=== PATIENT | female | born 1950 | race American Indian/Alaskan Native ===

== ENCOUNTER 2019-02-24 18:04 | Emergency (ER) | payer MEDICARE ==
--- NOTE | 2019-02-24 18:19 | Emergency Department Report ---
Chief Complaint: Syncope Stated Complaint: PASSED OUT/HIT HEAD Time Seen by Provider: 02/24/19 18:15 - HPI History of Present Illness: pt presents with syncope that occurred 30 min [employer] pt states she was feeling dizziness/lightheaded prior to syncope pt hit her head in the gravel driveway pt states she feels nauseous and dizziness now denies any SOLIMAN no numbness, weakness no vision changes PMHx DM, HTN MSE screening note: Focused history performed. Due to findings the following was ordered: CT head and c-spine, labs, EKG ED Disposition for MSE Condition: Stable
[2019-02-24 18:51] LABS: Basophils # (Auto) 0.1 K/mm3 (0.0-0.1); Basophils % (Auto) 0.7 % (0.0-1.8); Eosinophils # (Auto) 0.1 K/mm3 (0.0-0.4); Eosinophils % (Auto) 0.7 % (0.0-4.3); Hematocrit 37.5 % (30.3-42.9); Hemoglobin 12.6 gm/dl (10.1-14.3); Lymphocytes # (Auto) 3.1 K/mm3 (1.2-5.4); Mean Corpuscular HGB Conc 34 % (30-34); Mean Corpuscular Volume 93 fl (79-97); Monocytes # (Auto) 0.4 K/mm3 (0.0-0.8); Monocytes % (Auto) 4.6 % (0.0-7.3); Platelet Count 337 K/mm3 (140-440); Red Blood Count 4.03 M/mm3 (3.65-5.03); Red Cell Distribution Width 14.8 % (13.2-15.2)
[2019-02-24 19:20] LABS: Alanine Aminotransferase 16 units/L (7-56); BUN/Creatinine Ratio 18; Blood Urea Nitrogen 14 mg/dL (7-17); Calcium 9.7 mg/dL (8.4-10.2); Hemolysis Index 19
--- NOTE | 2019-02-24 20:04 | Cat Scan Report ---
PROCEDURE: CT HEAD/BRAIN WO CON HISTORY: syncope, hit head FINDINGS: Unenhanced CT of the brain was performed and demonstrates no acute intracranial hemorrhage, extra-axial fluid collection, midline shift or mass effect. The ventricles and basal cisterns are no t effaced. The mastoid air cells and middle ears appear clear. There is no evidence of acute sinusitis. The bony calvarium appears intact. IMPRESSION: No acute intracranial hemorrhage This document is electronically signed by Donn Richards MD., February 24 2019 08:02:08 PM ET
--- NOTE | 2019-02-24 20:06 | Cat Scan Report ---
PROCEDURE: CT CERVICAL SPINE WO CON HISTORY: syncope, hit head FINDINGS: Unenhanced CT of the cervical spine was performed and data was reformatted in the sagittal and coronal planes. There is a vacuum disc at C2-C3. There is loss of intervertebral disc space height and endplate remod eling at C3 C4, C4 C5, C5 C6 and C6-C7. At C5-C6 there is a partially calcified posterior disc bulge which does not result in canal stenosis or nerve root impingement. The prevertebral soft tissues are within normal limits. The pulmonary apices appear clear. IMPRESSION: No fracture is seen in the cervical spine This document is electronically signed by Donn Richards MD., February 24 2019 08:04:36 PM ET
[2019-02-24] MEDS ORDERED: ZOFRAN ODT PO ONE (21:19)
[2019-02-24] MEDS ORDERED: ANTIVERT PO ONE (21:19)
--- NOTE | 2019-02-24 21:23 | Emergency Department Report ---
ED Syncope HPI - General Chief Complaint: Syncope Stated Complaint: PASSED OUT/HIT HEAD Time Seen by Provider: 02/24/19 18:15 - History of Present Illness Initial Comments: Patient is 69 years old female with history of hypertension. Patient presented to the ER complaining of an episode of syncope that started just prior to coming to the ER. Patient stated that she was helping her niece moving when all of a sudden she felt faint and fell on the ground hit her head. Patient stated that this is happened for a few seconds and she was back to normal except for an nausea. Patient denied any chest pain or shortness of breath due to this episode. She denied any headache, fever, abdominal pain or other symptoms. Timing/Prior Episodes: no prior history, single episode today Precipitating Factors: Positive: blurred vision, lightheadedness Context: standing Loss of Consciousness: brief (seconds) Current Symptoms: nausea - Related Data Allergies/Adverse Reactions: Allergies avocado Allergy (Verified 02/24/19 21:24) Unknown Home Medications: Ambulatory Orders Aspirin 81 mg PO DAILY 02/24/19 AtorvaSTATin 1 tab PO HS 02/24/19 Gabapentin [Neurontin] 300 mg PO DAILY 02/24/19 Insulin NPH Human Isophane [HumuLIN N] 18 unit SQ DAILY 02/24/19 glipiZIDE 20 mg PO BID 02/24/19 metFORMIN 10 mg PO BID 02/24/19 ED Review of Systems ROS: Stated complaint: PASSED OUT/HIT HEAD Other details as noted in HPI Comment: All other systems reviewed and negative ENT: denies: throat pain, dental pain Cardiovascular: denies: chest pain, palpitations, dyspnea on exertion Gastrointestinal: nausea. denies: abdominal pain, vomiting, diarrhea, constipation, hematemesis, melena, hematochezia Musculoskeletal: denies: back pain Neurological: vertigo. denies: headache, weakness, numbness, paresthesias, confusion, abnormal gait ED Past Medical Hx - Past Medical History Hx Hypertension: Yes Hx Diabetes: Yes Hx Arthritis: (RA) - Surgical History Additional Surgical History: right rotator cuff repair - Social History Smoking Status: Never Smoker Substance Use Type: None - Medications Home Medications: Home Medications Medication Instructions Recorded Confirmed Last Taken Type Aspirin 81 mg PO DAILY 02/24/19 02/24/19 Unknown History AtorvaSTATin 1 tab PO HS 02/24/19 02/24/19 Unknown History Gabapentin [Neurontin] 300 mg PO DAILY 02/24/19 02/24/19 Unknown History Insulin NPH Human Isophane 18 unit SQ DAILY 02/24/19 02/24/19 Unknown History [HumuLIN N] glipiZIDE 20 mg PO BID 02/24/19 02/24/19 Unknown History metFORMIN 10 mg PO BID 02/24/19 02/24/19 Unknown History ED Physical Exam - General Limitations: No Limitations General appearance: alert, in no apparent distress - Head Head exam: Present: atraumatic, normocephalic, normal inspection - Eye Eye exam: Present: normal appearance, PERRL - ENT ENT exam: Present: normal exam, normal orophraynx, mucous membranes moist - Neck Neck exam: Present: normal inspection, full ROM. Absent: tenderness, meningismus, lymphadenopathy, thyromegaly - Respiratory Respiratory exam: Present: normal lung sounds bilaterally - Cardiovascular Cardiovascular Exam: Present: regular rate, normal rhythm, normal heart sounds - GI/Abdominal GI/Abdominal exam: Present: soft, normal bowel sounds. Absent: distended, tenderness, guarding, rebound, rigid, organomegaly, mass, bruit, pulsatile mass, hernia - Extremities Exam Extremities exam: Present: normal inspection, full ROM, normal capillary refill - Back Exam Back exam: Present: normal inspection, full ROM. Absent: tenderness, CVA tenderness (R), CVA tenderness (L), muscle spasm, paraspinal tenderness, vertebral tenderness, rash noted - Neurological Exam Neurological exam: Present: alert, oriented X3, CN II-XII intact, normal gait, reflexes normal - Skin Skin exam: Present: warm, intact, normal color ED Course Vital Signs 02/24/19 02/24/19 02/24/19 18:18 20:55 21:00 Temperature 97.9 F 98.2 F Pulse Rate 89 85 80 Respiratory 18 14 18 Rate Blood Pressure 141/70 137/62 Blood Pressure 138/70 [Left] O2 Sat by Pulse 98 97 97 Oximetry 02/24/19 02/24/19 02/25/19 22:00 23:01 00:01 Temperature Pulse Rate 77 71 76 Respiratory 14 13 18 Rate Blood Pressure 128/68 106/59 120/57 Blood Pressure [Left] O2 Sat by Pulse 98 99 98 Oximetry ED Medical Decision Making - Lab Data Result diagrams: 02/24/19 18:29 02/24/19 18:29 - EKG Data -: EKG Interpreted by Me EKG shows normal: sinus rhythm Rate: normal - EKG Data Interpretation: no acute changes - Radiology Data Radiology results: report reviewed CT brain and CT cervical spine is negative for acute finding. - Medical Decision Making Patient is 69 years old female with history of hypertension. Patient presented to the ER complaining of an episode of syncope that started just prior to coming to the ER. Patient stated that she was helping her niece moving when all of a sudden she felt faint and fell on the ground hit her head. Patient stated that this is happened for a few seconds and she was back to normal except for an nausea. Patient denied any chest pain or shortness of breath due to this e pisode. She denied any headache, fever, abdominal pain or other symptoms. Patient remained asymptomatic in the ER. CT brain is negative. Labs reviewed and is negative. CT cervical spine is negative. Patient had an elevated d- dimer and had a CTA chest which is negative for PE. Patient will be discharged home to follow up with her primary care physician. Patient advised to return to the ER if symptoms are not improved. Critical care attestation.: If time is entered above; I have spent that time in minutes in the direct care of this critically ill patient, excluding procedure time. ED Disposition Clinical Impression: Dizziness Disposition: DC-01 TO HOME OR SELFCARE Is pt being admited?: No Condition: Stable Instructions: Dizziness (ED) Referrals: PRIMARY CARE, [Primary Care Provider] - 3-5 Days
[2019-02-24 21:34] LABS: Bilirubin,Urine NEG (Negative); Blood,Urine NEG (Negative); Color,Urine Yellow (Yellow); Hyaline Casts,Urine 3 /LPF; Mucus,Urine FEW /HPF; Protein,Urine <15 mg/dL mg/dL (Negative); Urobilinogen,Urine < 2.0 mg/dL (<2.0)
[2019-02-25 00:39] VITALS: BP 120/57
--- NOTE | 2019-02-25 01:14 | Cat Scan Report ---
PROCEDURE: CT ANGIO CHEST HISTORY: syncope and elevated d-dimer FINDINGS: Contrast-enhanced CT angiography of the chest was performed following the intravenous admin istration of iodinated contrast. Sagittal and coronal MIP three-dimensional reformatted images were g enerated. These images demonstrate no CT evidence of pulmonary thromboembolic disease. There is no aortic disse ction. There is no consolidative pulmonary infiltrate. There is no pleural or pericardial effusion. There is a hiatal hernia. In the upper abdomen, the gallbladder is unremarkable. The adrenal glands are within normal limits. IMPRESSION: No CT evidence of pulmonary thromboembolic disease Hiatal hernia This document is electronically signed by Donn Richards MD., February 25 2019 01:12:26 AM ET
== END 2019-02-25 01:59 | disposition home or self-care (01) ==
LOC: ED 18:04
DX: R42 Dizziness and giddiness (principal); I10 Essential (primary) hypertension; E11.9 Type 2 diabetes mellitus without complications; M19.90 Unspecified osteoarthritis, unspecified site; Z79.82 Long term (current) use of aspirin; Z79.4 Long term (current) use of insulin; Z91.018 Allergy to other foods
CPT/HCPCS: 36415; 70450; 71275; 72125; 80053; 81001; 82962; 83735; 84100; 84484; 85025; 85379; 93005; 93010; 99284; Q9967; Q0162